=== PATIENT | female | born 1985 | race Caucasian/White ===

== ENCOUNTER 2019-01-02 08:27 | Day surgery (SDC) | payer OTHER ==
[~2019-01-02] VITALS: Ht 162.6 cm; Wt 56.7 kg
[~2019-01-02 08:27] MED LIST: LR 1,000 ML IV ONE
[2019-01-02 08:58] LABS: HEMOGLOBIN 12.7 g/dl (12.0-15.5); MEAN CORPUSCULAR HEMOGLOBIN 28.3 pg (27.0-33.0); MEAN CORPUSCULAR HGB CONC 31.8 g/dl (32.0-36.5); MEAN CORPUSCULAR VOLUME 89.1 fl (80.0-96.0); PLATELET COUNT, AUTOMATED 238 10^3/uL (150-450); RED BLOOD COUNT 4.49 10^6/uL (4.00-5.40); WHITE BLOOD COUNT 4.1 10^3/uL (4.0-10.0)
[2019-01-02 09:30] LABS: HCG, SERUM QUALITATIVE NEGATIVE (NEGATIVE)
[2019-01-02] MEDS ORDERED: IODINE STRONG SOLN 15 ML BTL As Ordered ONE (10:42)
[2019-01-02] MEDS ORDERED: LIDOCAINE W/EPINEPHRINE 1% 20ML VIAL As Ordered ONE (10:43)
[2019-01-02] MEDS ORDERED: dexameTHASONE 4 MG/ML 1ML VIAL (J1100) As Ordered ONE (12:05)
[2019-01-02] MEDS ORDERED: ONDANSETRON 4MG/2ML VIAL (J2405) As Ordered ONE (12:05)
[2019-01-02] MEDS ORDERED: KETOROLAC 60 MG/2 ML VIAL (J1885) As Ordered ONE (12:05)
[2019-01-02] MEDS ORDERED: LIDOCAINE 2% INJ 100 MG/5 ML SDV (FOR ANES.) As Ordered ONE (12:05)
[2019-01-02] MEDS ORDERED: PROPOFOL 200 MG/20 ML VIAL As Ordered ONE (12:05)
[2019-01-02] MEDS ORDERED: MIDAZOLAM INJ 2 MG/2 ML VIAL (J2250) As Ordered ONE (12:05)
[2019-01-02] MEDS ORDERED: fentaNYL 250 MCG/5 ML INJECTION (J3010) As Ordered ONE (12:05)
[2019-01-02 13:20] VITALS: BP 120/77
--- NOTE | 2019-01-04 08:16 | RO ---
DATE OF PROCEDURE: 01/02/2019 PREOPERATIVE DIAGNOSIS: Cervical dysplasia. POSTOPERATIVE DIAGNOSIS: Cervical dysplasia. PROCEDURE: LOOP electrosurgical excision procedure. SURGEON: Dr. Michele Peter [employer] MACHINE OPERATOR: None. ANESTHESIA: MAC. FLUIDS: 600 mL of lactated Ringers (LR). URINE OUTPUT: 150 mL via straight cath. ESTIMATED BLOOD LOSS: 1 mL. COMPLICATIONS: None. ANTIBIOTICS: None indicated. DETAILED PROCEDURE DESCRIPTION: The risks, benefits, indications and alternatives of the procedure were reviewed with the patient and informed consent was obtained. The patient was taken to the operating room where IV sedation was obtained without difficulty. The patient was then placed in lithotomy position using Rikki stirrups. The patient was then prepped and draped in the usual sterile fashion and the bladder was drained using an in and out catheter. A sterile Graves speculum was then placed into the vagina and the cervix was visualized. A paracervical block was then performed using approximately 10 mL of lidocaine with epinephrine. Lugol solution was then copiously applied to the cervix and highlighted a lesion from the 10 o'clock to 1 o'clock position of the cervix. The LEEP device was then set to 60/60 blend and activated. The looped electrocautery wire was then passed across the external cervical os in two passes. Collection of an adequate tissue sample was collected and it was sent to pathology for review. Superficial electrocoagulation of the cervical stroma was then performed and excellent hemostasis was achieved. All instruments were then removed from the patient's vagina. At the completion of the case, the sponge, instrument and needle counts were correct times two. The patient tolerated the procedure well and was discharged to home in stable condition. JANNET
== END 2019-01-02 13:25 | disposition home or self-care (01) ==
LOC: M SDC 08:27
PROVIDERS: ATTEND Obstetrics & Gynecology
DX: D06.9 Carcinoma in situ of cervix, unspecified (principal); K58.8 Other irritable bowel syndrome; F41.9 Anxiety disorder, unspecified
CPT/HCPCS: 36415; 57522; 84703; 85027; 88307; J1100; J1885; J2250; J2405; J3010

== ENCOUNTER 2019-02-13 11:35 | Day surgery (SDC) | payer OTHER ==
[~2019-02-13] VITALS: Ht 162.6 cm; Wt 56.9 kg
[~2019-02-13 11:35] MED LIST changes: -LR 1,000 ML IV ONE; +NS 1,000 ML IV ONE
[2019-02-13] MEDS ORDERED: PROPOFOL 200 MG/20 ML VIAL As Ordered ONE (12:53)
[2019-02-13] MEDS ORDERED: LIDOCAINE 2% INJ 100 MG/5 ML SDV (FOR ANES.) As Ordered ONE (12:53)
[2019-02-13] MEDS ORDERED: GLYCOPYRROLATE INJ 0.2 MG/ML 2 ML VIAL As Ordered ONE (13:19)
--- NOTE | 2019-02-13 13:24 | ROOR ---
Patient Name: Flor Barksdale Procedure Date: 02/13/2019 1:05 PM Date of : 1985 Age: 33 Room: [facility] Gender: Female Note Status: Finalized Procedure: Total Colonoscopy to Cecum Indications: Rectal bleeding Providers: Lawson Salguero MD Referring MD: ANABELLA KYLE MD Requesting Provider: Medicines: Monitored Anesthesia Care Complications: No immediate complications. Procedure: Pre-Anesthesia Assessment: - The heart rate, respiratory rate, oxygen saturations, blood pressure, adequacy of pulmonary ventilation, and response to care were monitored throughout the procedure. The Colonoscope was introduced through the anus and advanced to the cecum, identified by appendiceal orifice and ileocecal valve. The colonoscopy was performed without difficulty. The patient tolerated the procedure well. The quality of the bowel preparation was excellent. Findings: The perianal and digital rectal examinations were normal. Non-bleeding internal hemorrhoids were found during retroflexion. The hemorrhoids were small and Grade I (internal hemorrhoids that do not prolapse). No other significant abnormalities were identified in a careful examination of the remainder of the colon. The exam was otherwise without abnormality on direct and retroflexion views. Impression: - Non-bleeding internal hemorrhoids. - The examination was otherwise normal on direct and retroflexion views. - No specimens collected. - The exam was otherwise normal to the cecum. Recommendation: - Patient has a contact number available for emergencies. The signs and symptoms of potential delayed complications were discussed with the patient. Return to normal activities tomorrow. Written discharge instructions were provided to the patient. - High fiber diet. - Discharge patient to home. - Continue present medications. - Repeat colonoscopy at age 49 for screening purposes. - Return to referring physician. - The findings and recommendations were discussed with the patient's family. Lawson Salguero MD Lawson Salguero MD 02/13/2019 1:24:15 PM Electronically signed by Lawson Salguero MD Number of Addenda: 0 Note Initiated On: 02/13/2019 1:05 PM Estimated Blood Loss: Estimated blood loss: none.
[2019-02-13 13:45] VITALS: BP 109/73
== END 2019-02-13 13:58 | disposition home or self-care (01) ==
LOC: M OPP 11:35
PROVIDERS: ATTEND Internal Medicine Gastroenterology
DX: K64.0 First degree hemorrhoids (principal); K62.5 Hemorrhage of anus and rectum; Z79.899 Other long term (current) drug therapy